=== PATIENT | female | born 1955 | race Caucasian/White ===

== ENCOUNTER 2019-05-01 06:20 | Day surgery (SDC) | payer MEDICARE, MEDICAID ==
[2019-04-23 16:26] LABS: BASOPHILS % (AUTO) 0.7 % (0-1); EOSINOPHILS # (AUTO) 0.2 X10'3 (0-0.9); EOSINOPHILS % (AUTO) 2.5 % (0-6); LYMPHOCYTES # (AUTO) 1.9 X10'3 (1.1-4.8); LYMPHOCYTES % (AUTO) 27.2 % (21-51); MEAN CORPUSCULAR HEMOGLOBIN 32.6 PG (27.0-31.0); MEAN CORPUSCULAR HGB CONC 34.4 g/dL (33.0-36.5); MEAN CORPUSCULAR VOLUME 94.9 FL (78-98); MEAN PLATELET VOLUME 7.2 FL (7.4-10.4); MONOCYTES # (AUTO) 0.4 X10'3 (0-0.9); MONOCYTES % (AUTO) 5.4 % (2-12); NEUTROPHILS # (AUTO) 4.4 X10'3 (1.8-7.7); NEUTROPHILS % (AUTO) 64.2 % (42-75); PRE OP HEMATOCRIT 40.9 % (35.0-45.0); PRE OP HEMOGLOBIN 14.1 g/dL (12.0-16.0); PRE OP PLATELET COUNT 199 X10'3 (140-440); RED BLOOD COUNT 4.31 X10'6 (4.20-5.60); RED CELL DISTRIBUTION WIDTH 13.8 % (11.5-14.5)
[2019-04-23 16:48] LABS: ALBUMIN/GLOBULIN RATIO 1.1 (1.1-1.5); ALKALINE PHOSPHATASE 71 IU/L (46-116); BLOOD UREA NITROGEN 8 MG/DL (7-18); BUN/CREATININE RATIO 8.8 (6.6-38.0); CALCIUM 9.1 MG/DL (8.5-10.1); CHLORIDE 107 MMOL/L (99-107); CREATININE 0.91 MG/DL (0.40-0.90); PRE OP ALT 33 U/L (30-65); PRE OP ANION GAP 11 (8-16); PRE OP AST 26 U/L (10-37); PRE OP BILIRUB, TOTAL 0.6 MG/DL (0.0-1.0); PRE OP GLUCOSE 92 MG/DL (70-104); PRE OP POTASSIUM 3.9 MMOL/L (3.4-5.1); PRE OP SODIUM 144 MMOL/L (135-145); TOTAL CARBON DIOXIDE 26.1 MMOL/L (24-32); TOTAL PROTEIN 7.7 G/DL (6.4-8.2); eGFR 62 ML/MIN
[2019-05-01] VITALS (14 sets, daily range): BP systolic 107–148; BP diastolic 54–80
[~2019-05-01] VITALS: Ht 152.4 cm; Wt 73.9 kg
[~2019-05-01 06:20] MED LIST: DICL50TA8 PO; FLUT16SP26; LEVO112T5 PO; ROSU20TA31 PO; ascorbic acid 500mg tablet PO ONE; cefazolin/dext.iso 2gm/100ml 100 ML IV ONE; celeCOXIB 100mg capsule PO ONE; famotidine 10mg tablet PO ONE; gabapentin 300mg capsule PO ONE; ringers solution, lacted 1,000 ML IV SCH; vancomycin inj 1,500 MG in normal saline 300ml IV soln IV ONE
[2019-05-01] MEDS ORDERED: LIDOcaine 1% (10mg/ml) 2ml vial ONE (06:52)
[2019-05-01] MEDS ORDERED: BUPIVAcaine/PF 2.5 mg/ml (0.25%) 30ml vial ONE (08:36)
[2019-05-01] MEDS ORDERED: triamcinolone acetonide 40mg/ml inj ONE (08:36)
[2019-05-01] MEDS ORDERED: sevoflurane 250ml liquid IH ONE (08:42)
[2019-05-01] MEDS ORDERED: midazolam 2 mg/2 ml injection ONE (08:44)
[2019-05-01] MEDS ORDERED: fentaNYL/PF 50MCG/1 ML 2ML syringe ONE (08:44)
[2019-05-01] MEDS ORDERED: propofol inj 20 ML IV ONE (08:45)
[2019-05-01] MEDS ORDERED: levoFLOXACIN-Levaquin 500mg/D5 100 ML IV ONE (09:08)
[2019-05-01] MEDS ORDERED: BUPIVACAINE liposomal/PF 13.3 MG/ML vial IM ONE (09:08)
[2019-05-01] MEDS ORDERED: ringers solution, lacted 1,000 ML IV SCH (09:16)
[2019-05-01] MEDS ORDERED: morphine 4 MG/ML inj SYRINge IV PRN ×2 (09:20)
[2019-05-01] MEDS ORDERED: ondansetron/PF 4mg/2ml inj IV PRN (09:20)
[2019-05-01] MEDS ORDERED: proCHLORperazine 10 MG/2 ml inj IV PRN (09:20)
[2019-05-01] MEDS ORDERED: ketorolac trometh. 30mg/ml inj. IV ONE (09:20)
[2019-05-01] MEDS ORDERED: acetaminophen 1,000mg/100ml IV 100 ML IV ONE (09:32)
--- NOTE | 2019-05-01 09:43 | NUR ---
Received from OR via [facility], accompanied by Anesthesiologist DR URIBE and report given by Anesthesiologist. PT DROWSY, DENIES PAIN, LEFT KNEE W/BIAS DRSG COVERING INCISION/DRSG CDI. Addendum: 05/01/19 at 1009 by Amarilis Rojas RN Amended: Links added.
--- NOTE | 2019-05-01 11:33 | NUR ---
D/C INSTRUCTIONS GIVEN AND GONE OVER W/PT WHO VERBALIZED UNDERSTANDING, NAUSEA SUBSIDED, PT D/CD TO HOME VIA W/C TO PRIVATE VEHICLE W/O INCIDENT. Addendum: 05/01/19 at 1144 by Amarilis Rojas RN Amended: Links added.
== END 2019-05-01 11:33 | disposition home or self-care (01) ==
LOC: PAS 06:20
PROVIDERS: ATTEND Orthopaedic Surgery
DX: S83.242A Other tear of medial meniscus, current injury, left knee, initial encounter (principal); S83.282A Other tear of lateral meniscus, current injury, left knee, initial encounter; M94.262 Chondromalacia, left knee; M17.0 Bilateral primary osteoarthritis of knee; E03.9 Hypothyroidism, unspecified; E78.5 Hyperlipidemia, unspecified; Z72.89 Other problems related to lifestyle; E66.8 Other obesity; Z68.31 Body mass index [BMI] 31.0-31.9, adult; Z79.899 Other long term (current) drug therapy; Z90.710 Acquired absence of both cervix and uterus; Z98.890 Other specified postprocedural states; Z88.0 Allergy status to penicillin; Z88.1 Allergy status to other antibiotic agents; Z88.8 Allergy status to other drugs, medicaments and biological substances; X58.XXXA Exposure to other specified factors, initial encounter; Y93.89 Activity, other specified; Y92.89 Other specified places as the place of occurrence of the external cause; Y99.8 Other external cause status
CPT/HCPCS: 29873; 29879; 29880; 36415; 80053; 82948; 85025; C9290; J0131; J1885; J1956; J2001; J2250; J2405; J2704; J3010; J3301; J3370; J3490; A4215; A4618; A6250; A6449; A7000; J7120